=== PATIENT | female | born 1955 | race Caucasian/White ===

== ENCOUNTER 2018-05-11 21:59 | Emergency (ER) | payer OTHER ==
[~2018-05-11] VITALS: Ht 165.1 cm; Wt 100.0 kg
[~2018-05-11 21:59] MED LIST: ASPI-1159 PO; ATOR40TA70 PO; COR3 PO; FURO10VI3 PO; FURO20TA4 PO; LOSA25TA3 PO; METO25TA6 PO; OMEP20CA10 PO
[2018-05-11 23:41] LABS: BASOPHILS % 1.4 % (0.0-2.0); EOSINOPHILS % 14.6 % (0.0-5.0); HEMATOCRIT. 38.3 % (36.0-48.0); HEMOGLOBIN. 12.4 g/dL (12.0-16.0); MEAN CORPUSCULAR HEMOGLOBIN 23.9 pg (28.0-32.0); MEAN CORPUSCULAR VOLUME 73.8 fL (81.0-99.0); MEAN PLATELET VOLUME 9.9 fl (7.4-10.4); MONOCYTES % 9.1 % (2.0-8.0); NEUTROPHILS % 49.9 % (40.0-76.0); PLATELET 180 x1000/uL (130-400); RED BLOOD CELL COUNT 5.18 mill/uL (4.2-5.4); RED CELL DISTRIBUTION WIDTH 16.5 % (11.6-14.6)
[2018-05-11 23:47] LABS: CHLORIDE 105 mEq/L (98-107)
[2018-05-11 23:48] LABS: INR 1.1; PROTHROMBIN TIME 10.9 sec (9.4-11.6)
[2018-05-12] LABS: CLARITY URINE CLEAR (CLEAR); COLOR URINE YELLOW (YELLOW); KETONES URINE NEGATIVE (NEGATIVE); LEUKOCYTE ESTERASE URINE 2+ (NEGATIVE); NITRITE URINE NEGATIVE (NEGATIVE); OCCULT BLOOD URINE NEGATIVE (NEGATIVE); PROTEIN URINE NEGATIVE (NEGATIVE); SPECIFIC GRAVITY URINE 1.008 (1.005-1.030); UROBILINOGEN URINE 0.2 E.U./dL (0.2-1.0)
[2018-05-12] MEDS ORDERED: KETOROLAC 30MG/ML VIAL IV NR (01:38)
[2018-05-12 02:19] VITALS: BP 127/76
[2018-05-12] MEDS ORDERED: IOHEXOL-300 100 ML BOTTLE ONE (02:26)
== END 2018-05-12 02:22 | disposition home or self-care (01) ==
LOC: ER 23:36
DX: N39.0 Urinary tract infection, site not specified (principal); I10 Essential (primary) hypertension; E78.00 Pure hypercholesterolemia, unspecified; E03.9 Hypothyroidism, unspecified
CPT/HCPCS: 36415; 74177; 80053; 81003; 83690; 85025; 85610; 96374; 99285; J1885; Q9967; Z7610

== ENCOUNTER 2022-10-30 03:45 | Inpatient (IN) | payer MEDICARE ==
[~2022-10-30] VITALS: Ht 152.4 cm; Wt 56.8 kg
[~2022-10-30 03:45] MED LIST changes: -ASPI-1159 PO; +ASPI-1497 PO; +ESCI-7 PO; +ESCI5TAB PO; -FURO10VI3 PO; -FURO20TA4 PO; +FURO40TA5 MT; +LORA10TA7 PO; +METF-414 PO; -METO25TA6 PO; -OMEP20CA10 PO; +OMEP20CA14 PO
[2022-10-30 05:02] LABS: BASOPHILS % 1.2 % (0.0-2.0); EOSINOPHILS % 12.8 % (0.0-5.0); HEMATOCRIT. 35.1 % (36.0-48.0); HEMOGLOBIN. 11.2 g/dL (12.0-16.0); LYMPHOCYTES % 19.2 % (20.0-50.0); MEAN CORPUSCULAR HEMOGLOBIN 25.8 pg (28.0-32.0); MEAN CORPUSCULAR VOLUME 80.6 fL (81.0-99.0); MEAN PLATELET VOLUME 9.8 fl (7.4-10.4); MONOCYTES % 6.5 % (2.0-8.0); NEUTROPHILS % 60.3 % (40.0-76.0); PLATELET 158 x1000/uL (130-400); RED BLOOD CELL COUNT 4.35 mill/uL (4.2-5.4); RED CELL DISTRIBUTION WIDTH 15.8 % (11.6-14.6)
[2022-10-30 05:23] LABS: INR 1.1; PROTHROMBIN TIME 11.9 sec (9.6-11.0)
[2022-10-30 05:31] LABS: CHLORIDE 109 mEq/L (98-107)
[2022-10-30] MEDS ORDERED: ASPIRIN 81MG TABLET PO NR (06:30)
[2022-10-30] MEDS ORDERED: MORPHINE SULFATE 2 MG/ML CPJ (NOT FOR IM USE) IV ONE (07:15)
[2022-10-30] MEDS ORDERED: METHYLPREDNISOLONE SOD SUCC 125 MG/2 ML VIAL IV ONE (07:15)
[2022-10-30] MEDS ORDERED: IPRATROPIUM/ALBUTEROL 0.5-3(2.5)MG/3ML NEB HHN ONE (07:15)
[2022-10-30] MEDS ORDERED: MORPHINE SULFATE 2 MG/ML CPJ (NOT FOR IM USE) IV SCH (09:00)
[2022-10-30] MEDS ORDERED: METHYLPREDNISOLONE SOD SUCC 125 MG/2 ML VIAL IV SCH (09:00)
[2022-10-30] MEDS ORDERED: IOHEXOL-300 100 ML BOTTLE ONE (10:14)
[2022-10-30 13:00] VITALS: BP 101/56
[2022-10-30] MEDS: FUROSEMIDE 40MG/4ML VIAL IVP SCH (13:45)
[2022-10-30] MEDS ORDERED: IPRATROPIUM/ALBUTEROL 0.5-3(2.5)MG/3ML NEB HHN SCH (14:00)
[2022-10-30 15:52] VITALS: BP 101/56
[2022-10-30 16:00] VITALS: BP 110/60
[2022-10-30] MEDS ORDERED: INFLUENZA VACCINE 05/PF 0.5 ML SYRINGE IM ONE (16:45)
[2022-10-30] MEDS ORDERED: MORPHINE SULFATE 2 MG/ML CPJ (NOT FOR IM USE) IV PRN (18:30)
[2022-10-30] MEDS ORDERED: DEXTROSE 50% WATER 50ML SYRINGE IV PRN (18:30)
[2022-10-30 20:00] VITALS: BP 97/54
[2022-10-30] MEDS: BLOOD SUGAR DIAGNOSTIC STRIP TEST SCH (20:48)
[2022-10-30] MEDS: INSULIN LISPRO 100 UNITS/ML SUBCUT SCH (20:48)
[2022-10-30] MEDS: IPRATROPIUM/ALBUTEROL 0.5-3(2.5)MG/3ML NEB HHN SCH (21:24)
[2022-10-31] VITALS: BP 95/53
[2022-10-31] MEDS: IPRATROPIUM/ALBUTEROL 0.5-3(2.5)MG/3ML NEB HHN SCH ×4 (01:09→11:57)
[2022-10-31 03:43] VITALS: BP 90/55
[2022-10-31 06:30] LABS: HEMATOCRIT 30.6 % (36.0-48.0); MEAN CORPUSCULAR VOLUME 79.4 fL (81.0-99.0); PLATELET 158 x1000/uL (130-400); RED BLOOD CELL COUNT 3.85 mill/uL (4.2-5.4); RED CELL DISTRIBUTION WIDTH 15.7 % (11.6-14.6)
[2022-10-31 06:48] LABS: CHLORIDE 103 mEq/L (98-107)
[2022-10-31] MEDS: BLOOD SUGAR DIAGNOSTIC STRIP TEST SCH ×2 (07:29→12:34)
[2022-10-31] MEDS: INSULIN LISPRO 100 UNITS/ML SUBCUT SCH ×2 (07:29→13:15)
[2022-10-31 08:00] VITALS: BP 90/46
[2022-10-31] MEDS ORDERED: NALOXONE HCL 0.4MG/ML VIAL IV PRN (08:30)
[2022-10-31] MEDS ORDERED: CARVEDILOL 3.125 MG TABLET PO SCH (09:00)
[2022-10-31] MEDS ORDERED: LORATADINE 10MG TABLET PO SCH (09:00)
[2022-10-31] MEDS ORDERED: PREDNISONE 20MG TABLET PO SCH (09:00)
[2022-10-31] MEDS ORDERED: ENOXAPARIN 40MG/0.4ML SYR SUBCUT SCH (09:00)
[2022-10-31] MEDS ORDERED: ASPIRIN 81MG EC TABLET PO SCH (09:00)
[2022-10-31] MEDS: FUROSEMIDE 40MG/4ML VIAL IVP SCH (09:28)
[2022-10-31 12:00] VITALS: BP 93/50
[2022-10-31 12:59] LABS: HEMATOCRIT. 32.8 % (36.0-48.0); HEMOGLOBIN. 10.7 g/dL (12.0-16.0); MEAN CORPUSCULAR HEMOGLOBIN 26.1 pg (28.0-32.0); MEAN CORPUSCULAR VOLUME 79.7 fL (81.0-99.0); MEAN PLATELET VOLUME 10.1 fl (7.4-10.4); PLATELET 171 x1000/uL (130-400); RED BLOOD CELL COUNT 4.12 mill/uL (4.2-5.4); RED CELL DISTRIBUTION WIDTH 15.5 % (11.6-14.6)
[2022-10-31 13:08] LABS: CHLORIDE 102 mEq/L (98-107)
[2022-10-31 13:40] LABS: PLATELET ESTIMATE NORMAL
[2022-10-31 15:21] VITALS: BP 93/50
[2022-10-31 16:00] VITALS: BP 91/47
[2022-10-31] MEDS ORDERED: ATORVASTATIN CALCIUM 40MG TABLET PO SCH (17:00)
[2022-11-01] MEDS ORDERED: FUROSEMIDE 20MG TABLET PO SCH (09:00)
== END 2022-10-31 18:43 | disposition home or self-care (01) | DRG 280 ==
LOC: ER 04:06 → 8WST 07:03 → EDBEDREQTM 07:07 → EDBEDREQ 07:07 → ENRESERV 14:13
PROVIDERS: ADMIT Internal Medicine; ATTEND Internal Medicine
DX: I11.0 Hypertensive heart disease with heart failure (principal); I50.23 Acute on chronic systolic (congestive) heart failure; I21.A1 Myocardial infarction type 2; J96.91 Respiratory failure, unspecified with hypoxia; J44.1 Chronic obstructive pulmonary disease with (acute) exacerbation; E11.9 Type 2 diabetes mellitus without complications; D72.10 Eosinophilia, unspecified; Z20.822 Contact with and (suspected) exposure to COVID-19; E78.00 Pure hypercholesterolemia, unspecified; R74.01 Elevation of levels of liver transaminase levels; K76.0 Fatty (change of) liver, not elsewhere classified; I25.10 Atherosclerotic heart disease of native coronary artery without angina pectoris; I44.7 Left bundle-branch block, unspecified; Z95.810 Presence of automatic (implantable) cardiac defibrillator; R10.9 Unspecified abdominal pain
CPT/HCPCS: 36415; 71045; 74177; 80048; 80053; 82962; 83036; 83880; 84484; 85025; 85027; 86850; 86900; 87426; 87804; 90686; 93005; 93306; 94640; 99285; C9803; J1650; J1815; J1940; J2270; J2930; J7512; Q9967

== ENCOUNTER 2023-01-30 15:59 | Inpatient (IN) | payer MEDICARE ==
[~2023-01-30] VITALS: Ht 134.6 cm; Wt 62.8 kg
[2023-01-30 19:15] LABS: BASOPHILS % 2.3 % (0.0-2.0); EOSINOPHILS % 7.2 % (0.0-5.0); HEMATOCRIT. 31.4 % (36.0-48.0); HEMOGLOBIN. 9.6 g/dL (12.0-16.0); LYMPHOCYTES % 20.2 % (20.0-50.0); MEAN CORPUSCULAR HEMOGLOBIN 21.9 pg (28.0-32.0); MEAN CORPUSCULAR VOLUME 71.2 fL (81.0-99.0); MONOCYTES % 8.4 % (2.0-8.0); NEUTROPHILS % 61.9 % (40.0-76.0); PLATELET 216 x1000/uL (130-400); RED BLOOD CELL COUNT 4.41 mill/uL (4.2-5.4); RED CELL DISTRIBUTION WIDTH 17.8 % (11.6-14.6)
[2023-01-30 19:23] LABS: CHLORIDE 109 mEq/L (98-107)
[2023-01-30 19:26] LABS: INR 1.3; PROTHROMBIN TIME 13.3 sec (9.6-11.0)
[2023-01-30] MEDS ORDERED: TRAMADOL 50MG TABLET PO ONE (22:15)
[2023-01-30] MEDS ORDERED: ONDANSETRON 4MG ODT PO ONE (22:15)
[2023-01-30 22:43] LABS: CLARITY URINE CLOUDY (CLEAR); COLOR URINE DARK YELLOW (YELLOW); KETONES URINE TRACE (NEGATIVE); LEUKOCYTE ESTERASE URINE 2+ (NEGATIVE); NITRITE URINE NEGATIVE (NEGATIVE); OCCULT BLOOD URINE NEGATIVE (NEGATIVE); PROTEIN URINE 1+ (NEGATIVE); SPECIFIC GRAVITY URINE 1.028 (1.005-1.030)
[2023-01-31] MEDS ORDERED: AMOXICILLIN/POTASSIUM CLAVULANATE 875/125MG TAB PO ONE (02:00)
[2023-01-31 04:30] VITALS: BP 119/79
[2023-01-31] MEDS ORDERED: TRAM50TA3 MT (05:06)
[2023-01-31] MEDS ORDERED: FURO20TA4 MT (05:06)
[2023-01-31] MEDS ORDERED: LEVO100T PO (05:06)
[2023-01-31] MEDS ORDERED: CARV6.2548 PO (05:06)
[2023-01-31 05:10] VITALS: BP 119/79
[2023-01-31] MEDS ORDERED: ONDANSETRON HCL 4MG/2ML INJ IV PRN (06:15)
[2023-01-31] MEDS ORDERED: TRAMADOL 50MG TABLET PO PRN (06:15)
[2023-01-31 08:00] VITALS: BP 120/67
[2023-01-31] MEDS: ASPIRIN 81MG TABLET PO SCH (08:14)
[2023-01-31] MEDS: LEVOTHYROXINE SODIUM 50MCG TABLET PO SCH (08:14)
[2023-01-31] MEDS: CARVEDILOL 6.25 MG TABLET PO SCH ×2 (08:14→17:00)
[2023-01-31] MEDS: PANTOPRAZOLE 40MG DR TABLET PO SCH (08:14)
[2023-01-31] MEDS: HEPARIN 5000 UNITS/ML VIAL SUBCUT SCH ×2 (08:15→17:14)
[2023-01-31 08:55] LABS: BASOPHILS % 1.8 % (0.0-2.0); EOSINOPHILS % 8.4 % (0.0-5.0); HEMATOCRIT. 30.7 % (36.0-48.0); HEMOGLOBIN. 9.4 g/dL (12.0-16.0); LYMPHOCYTES % 24.3 % (20.0-50.0); MEAN CORPUSCULAR HEMOGLOBIN 21.7 pg (28.0-32.0); MEAN CORPUSCULAR VOLUME 71.1 fL (81.0-99.0); MEAN PLATELET VOLUME 9.5 fl (7.4-10.4); MONOCYTES % 8.8 % (2.0-8.0); NEUTROPHILS % 56.7 % (40.0-76.0); PLATELET 200 x1000/uL (130-400); RED BLOOD CELL COUNT 4.32 mill/uL (4.2-5.4); RED CELL DISTRIBUTION WIDTH 18.5 % (11.6-14.6)
[2023-01-31] MEDS ORDERED: *PATIENT'S OWN MEDICATION STORAGE XX SCH (09:30)
[2023-01-31 12:00] VITALS: BP 108/67
[2023-01-31] MEDS ORDERED: NALOXONE HCL 0.4MG/ML VIAL IV PRN (12:30)
[2023-01-31] MEDS ORDERED: CEFTRIAXONE 1GM PREMIX 50 ML IV SCH (14:00)
[2023-01-31 16:00] VITALS: BP 95/68
[2023-01-31] MEDS ORDERED: HYDROCODONE/ACETAMINOPHEN 5/325MG TABLET PO PRN (17:30)
[2023-01-31 19:44] VITALS: BP 101/68
[2023-02-01] VITALS: BP 106/72
[2023-02-01 04:00] VITALS: BP 107/70
[2023-02-01 08:00] VITALS: BP 109/70
[2023-02-01] MEDS: HEPARIN 5000 UNITS/ML VIAL SUBCUT SCH (08:56)
[2023-02-01] MEDS: PANTOPRAZOLE 40MG DR TABLET PO SCH (08:56)
[2023-02-01] MEDS: ASPIRIN 81MG TABLET PO SCH (08:56)
[2023-02-01] MEDS: CARVEDILOL 6.25 MG TABLET PO SCH (08:57)
[2023-02-01] MEDS: LEVOTHYROXINE SODIUM 50MCG TABLET PO SCH (08:57)
[2023-02-01] MEDS ORDERED: LEVOFLOXACIN 250MG TABLET PO SCH ×2 (11:00)
[2023-02-01 12:00] VITALS: BP 107/69
[2023-02-01 14:01] VITALS: BP 109/70
[2023-02-02] MEDS ORDERED: LEVOFLOXACIN 250MG TABLET PO SCH (11:00)
== END 2023-02-01 15:50 | disposition home or self-care (01) | DRG 689 ==
LOC: ER 15:59 → MICUSO 01-31 02:50 → EDBEDREQ 01-31 02:53 → 7WST 01-31 04:15
PROVIDERS: ADMIT Internal Medicine; ATTEND Internal Medicine
DX: N30.90 Cystitis, unspecified without hematuria (principal); I50.23 Acute on chronic systolic (congestive) heart failure; K85.90 Acute pancreatitis without necrosis or infection, unspecified; N17.9 Acute kidney failure, unspecified; I42.9 Cardiomyopathy, unspecified; E03.9 Hypothyroidism, unspecified; E11.9 Type 2 diabetes mellitus without complications; E66.9 Obesity, unspecified; I11.0 Hypertensive heart disease with heart failure; Z68.34 Body mass index [BMI] 34.0-34.9, adult; K21.9 Gastro-esophageal reflux disease without esophagitis; E78.00 Pure hypercholesterolemia, unspecified; I25.2 Old myocardial infarction; Z90.49 Acquired absence of other specified parts of digestive tract; Z95.810 Presence of automatic (implantable) cardiac defibrillator
CPT/HCPCS: 36415; 71045; 74176; 80048; 80053; 80076; 81003; 83880; 84484; 85025; 93005; 99285; J0696; J1644; J2405; Q0162

== ENCOUNTER 2023-03-09 07:47 | Emergency (ER) | payer MEDICARE ==
[~2023-03-09] VITALS: Ht 160 cm; Wt 62.0 kg
[~2023-03-09 07:47] MED LIST changes: +CARV6.2548 PO; +FURO20TA4 MT; +LEVO100T PO; +TRAM50TA3 MT
[2023-03-09 08:54] LABS: HEMATOCRIT. 33.7 % (36.0-48.0); MEAN CORPUSCULAR HEMOGLOBIN 19.7 pg (28.0-32.0); MEAN PLATELET VOLUME 8.8 fl (7.4-10.4); PLATELET 228 x1000/uL (130-400); RED BLOOD CELL COUNT 5.11 mill/uL (4.2-5.4); RED CELL DISTRIBUTION WIDTH 20.7 % (11.6-14.6)
[2023-03-09 09:04] LABS: CHLORIDE 107 mEq/L (98-107)
[2023-03-09 10:24] VITALS: BP 100/64
[2023-03-09 10:43] LABS: PLATELET ESTIMATE NORMAL
== END 2023-03-09 10:26 | disposition home or self-care (01) ==
LOC: ER 07:47
DX: D64.9 Anemia, unspecified (principal); I11.0 Hypertensive heart disease with heart failure; I50.9 Heart failure, unspecified; E78.00 Pure hypercholesterolemia, unspecified; Z86.39 Personal history of other endocrine, nutritional and metabolic disease; Z90.49 Acquired absence of other specified parts of digestive tract
CPT/HCPCS: 36415; 80053; 85025; 86850; 86900; 99283

== ENCOUNTER 2023-08-18 07:54 | Emergency (ER) | payer MEDICARE ==
[~2023-08-18] VITALS: Ht 152.4 cm; Wt 54.0 kg
[~2023-08-18 07:54] MED LIST changes: +LOSA-412 PO; -LOSA25TA3 PO
[2023-08-18 08:13] VITALS: BP 96/61; PULSE 89; RESP 20; TEMP 98.1; O2SAT 99
[2023-08-18 09:20] LABS: BASOPHILS % 2.2 % (0.0-2.0); EOSINOPHILS % 8.6 % (0.0-5.0); HEMATOCRIT. 31.1 % (36.0-48.0); HEMOGLOBIN. 8.8 g/dL (12.0-16.0); LYMPHOCYTES % 17.3 % (20.0-50.0); MEAN CORPUSCULAR HEMOGLOBIN 17.6 pg (28.0-32.0); MEAN CORPUSCULAR HGB CONC 28.4 g/dL (31.0-37.0); MEAN CORPUSCULAR VOLUME 61.8 fL (81.0-99.0); MONOCYTES % 7.7 % (2.0-8.0); NEUTROPHILS % 64.2 % (40.0-76.0); PLATELET 258 x1000/uL (130-400); RED BLOOD CELL COUNT 5.04 mill/uL (4.2-5.4); RED CELL DISTRIBUTION WIDTH 23.3 % (11.6-14.6); WHITE BLOOD COUNT 4.7 x1000/uL (4.5-11.0)
[2023-08-18 09:23] LABS: ADD RBC MORPHOLOGY YES; DIFFERENTIAL COMMENT 1
[2023-08-18 09:30] LABS: CHLORIDE 109 mEq/L (98-107); INDEX HEMOLYSI 1 (1-3); INDEX ICTERIC 1 (1-4); INDEX LIPEMIC 1 (1-3); POTASSIUM 4.1 mEq/L (3.5-5.1); SODIUM 143 mEq/L (136-145)
[2023-08-18 09:38] LABS: ALANINE AMINOTRANSFERASE 55 IU/L (13-61); ALBUMIN 3.6 g/dL (3.4-5.0); ASPARTATE AMINOTRANSFERASE 27 IU/L (15-37); BILIRUBIN TOTAL 1.3 mg/dL (0.1-1.0); CALCIUM 8.6 mg/dL (8.5-10.1); CARBON DIOXIDE 32 mEq/L (21-32); CREATININE 1.1 mg/dL (0.6-1.3); GLUCOSE 126 mg/dL (70-105); PROTEIN TOTAL 7.3 g/dL (6.0-8.3); UREA NITROGEN BLOOD 24 mg/dL (7-21)
[2023-08-18 10:41] LABS: ANISOCYTOSIS 3+; MICROCYTOSIS 4+; PLATELET ESTIMATE NORMAL
[2023-08-18 10:42] LABS: HYPOCHROMASIA 2+
== END 2023-08-18 11:19 | disposition home or self-care (01) ==
LOC: ER 07:54
DX: D64.9 Anemia, unspecified (principal); I49.9 Cardiac arrhythmia, unspecified
CPT/HCPCS: 36415; 80053; 85025; 86850; 86900; 93005; 99284

== ENCOUNTER 2024-01-02 11:14 | Inpatient (IN) | payer MEDICARE ==
[~2024-01-02] VITALS: Ht 144.8 cm; Wt 61.2 kg
[~2024-01-02 11:14] MED LIST changes: -CARV6.2548 PO; -FURO40TA5 MT
[2024-01-02 12:41] LABS: BASOPHILS % 1.8 % (0.0-2.0); EOSINOPHILS % 11.8 % (0.0-5.0); HEMATOCRIT. 32.8 % (36.0-48.0); HEMOGLOBIN. 9.7 g/dL (12.0-16.0); LYMPHOCYTES % 20.6 % (20.0-50.0); MEAN CORPUSCULAR HEMOGLOBIN 19.8 pg (28.0-32.0); MEAN CORPUSCULAR HGB CONC 29.5 g/dL (31.0-37.0); MEAN PLATELET VOLUME 9.3 fl (7.4-10.4); MONOCYTES % 8.6 % (2.0-8.0); NEUTROPHILS % 57.2 % (40.0-76.0); PLATELET 221 x1000/uL (130-400); RED BLOOD CELL COUNT 4.89 mill/uL (4.2-5.4); RED CELL DISTRIBUTION WIDTH 27.2 % (11.6-14.6); WHITE BLOOD COUNT 6.3 x1000/uL (4.5-11.0)
[2024-01-02 12:54] LABS: DIFFERENTIAL COMMENT 1
[2024-01-02 12:55] LABS: ADD RBC MORPHOLOGY YES
[2024-01-02 12:59] LABS: ALANINE AMINOTRANSFERASE 39 IU/L (10-49); ALBUMIN 4.1 g/dL (3.2-4.8); ASPARTATE AMINOTRANSFERASE 45 IU/L (<34); BILIRUBIN TOTAL 1.9 mg/dL (0.1-1.0); CALCIUM 8.5 mg/dL (8.7-10.4); CARBON DIOXIDE 25 mEq/L (21-32); CHLORIDE 107 mEq/L (98-107); CREATININE 1.3 mg/dL (0.6-1.0); GLUCOSE 97 mg/dL (70-105); POTASSIUM 5.2 mEq/L (3.5-5.1); PROTEIN TOTAL 6.5 g/dL (6.0-8.3); SODIUM 137 mEq/L (136-145); UREA NITROGEN BLOOD 30 mg/dL (9-23)
[2024-01-02 13:10] LABS: HYPOCHROMASIA 1+
[2024-01-02 13:11] LABS: ANISOCYTOSIS 3+; MICROCYTOSIS 2+
[2024-01-02 13:12] LABS: PLATELET ESTIMATE NORMAL
[2024-01-02 13:17] LABS: TROPONIN I HIGH SENSITIVITY 86 ng/L (3.0-34)
[2024-01-02] MEDS ORDERED: REGADENOSON 0.4 MG/5 ML IV NR (15:00)
[2024-01-02] MEDS: ASPIRIN 81MG TABLET PO NR (16:08)
[2024-01-02] MEDS ORDERED: CARVEDILOL 3.125 MG TABLET PO SCH (17:00)
[2024-01-02 17:30] VITALS: BP 116/83; PULSE 110; RESP 20; TEMP 97.1
[2024-01-02] MEDS ORDERED: ATORVASTATIN CALCIUM 40MG TABLET PO SCH (17:30)
[2024-01-02] MEDS: OMEPRAZOLE 20MG CAPSULE EXTENDED RELEASE PO SCH (17:30)
[2024-01-02] MEDS ORDERED: ONDANSETRON HCL 4MG/2ML INJ IV PRN (17:30)
[2024-01-02] MEDS: ASPIRIN 81MG EC TABLET PO SCH (17:30)
[2024-01-02] MEDS ORDERED: DEXTROSE 50% WATER 50ML SYRINGE IV PRN (17:30)
[2024-01-02] MEDS: INSULIN LISPRO 100 UNITS/ML SUBCUT SCH (17:40)
[2024-01-02 18:23] VITALS: BP 116/83; PULSE 110; RESP 22; TEMP 97.1
[2024-01-02] MEDS: LOSARTAN 25 MG TABLET PO SCH (18:57)
[2024-01-02] MEDS: ENOXAPARIN 40MG/0.4ML SYR SUBCUT SCH (18:58)
[2024-01-02] MEDS: LEVOTHYROXINE SODIUM 50MCG TABLET PO SCH (18:58)
[2024-01-02] MEDS: LORATADINE 10MG TABLET PO SCH (18:58)
[2024-01-02 20:00] VITALS: BP 107/74; PULSE 103; RESP 17; TEMP 97.8
[2024-01-02] MEDS: BLOOD SUGAR DIAGNOSTIC STRIP TEST SCH (20:06)
[2024-01-02 20:24] LABS: POTASSIUM 4.9 mEq/L (3.5-5.1)
[2024-01-02] MEDS: ATORVASTATIN CALCIUM 40MG TABLET PO SCH (20:29)
[2024-01-02] MEDS: CARVEDILOL 3.125 MG TABLET PO SCH (20:30)
[2024-01-02 20:36] LABS: TROPONIN I HIGH SENSITIVITY 83 ng/L (3.0-34)
[2024-01-02] MEDS: ACETAMINOPHEN 325MG TABLET PO PRN (20:36)
[2024-01-03] VITALS (7 sets, daily range): BP systolic 91–109; BP diastolic 53–70; PULSE 86–108; RESP 17–20; TEMP 97–97.7
[2024-01-03 01:11] LABS: CREATINE KINASE MB FRACTION 1.9 ng/mL (0.5-3.6)
[2024-01-03] MEDS ORDERED: NON FORMULARY PATIENT HOME MED XX SCH (03:45)
[2024-01-03] MEDS: MELATONIN 3MG TABLET PO PRN (04:02)
[2024-01-03] MEDS: GUAIFENESIN/DM 600MG/30MG ER TAB 12HR PO PRN (04:02)
[2024-01-03 08:38] LABS: CREATINE KINASE MB FRACTION 1.7 ng/mL (0.5-3.6)
[2024-01-03] MEDS: FUROSEMIDE 20MG TABLET PO SCH (08:41)
[2024-01-03 12:16] LABS: BASOPHILS % 1.8 % (0.0-2.0); EOSINOPHILS % 12.5 % (0.0-5.0); HEMATOCRIT. 32.5 % (36.0-48.0); HEMOGLOBIN. 9.5 g/dL (12.0-16.0); LYMPHOCYTES % 15.8 % (20.0-50.0); MEAN CORPUSCULAR HEMOGLOBIN 19.3 pg (28.0-32.0); MEAN CORPUSCULAR HGB CONC 29.2 g/dL (31.0-37.0); MEAN CORPUSCULAR VOLUME 66.2 fL (81.0-99.0); MEAN PLATELET VOLUME 9.1 fl (7.4-10.4); NEUTROPHILS % 60.9 % (40.0-76.0); PLATELET 203 x1000/uL (130-400); RED BLOOD CELL COUNT 4.91 mill/uL (4.2-5.4); RED CELL DISTRIBUTION WIDTH 26.7 % (11.6-14.6); WHITE BLOOD COUNT 6.5 x1000/uL (4.5-11.0)
[2024-01-03 12:17] LABS: DIFFERENTIAL COMMENT 1
[2024-01-03 12:18] LABS: ADD RBC MORPHOLOGY NO
[2024-01-03 12:31] LABS: ALANINE AMINOTRANSFERASE 52 IU/L (10-49); ALBUMIN 3.8 g/dL (3.2-4.8); ASPARTATE AMINOTRANSFERASE 61 IU/L (<34); BILIRUBIN TOTAL 1.8 mg/dL (0.1-1.0); CALCIUM 8.5 mg/dL (8.7-10.4); CARBON DIOXIDE 25 mEq/L (21-32); CHLORIDE 105 mEq/L (98-107); CREATININE 1.2 mg/dL (0.6-1.0); GLUCOSE 131 mg/dL (70-105); POTASSIUM 4.7 mEq/L (3.5-5.1); PROTEIN TOTAL 6.3 g/dL (6.0-8.3); SODIUM 138 mEq/L (136-145); T4 FREE 1.32 ng/dL (0.89-1.76); UREA NITROGEN BLOOD 33 mg/dL (9-23)
[2024-01-03 12:54] LABS: TROPONIN I HIGH SENSITIVITY 86 ng/L (3.0-34)
[2024-01-03] MEDS: IPRATROPIUM/ALBUTEROL 0.5-3(2.5)MG/3ML NEB HHN PRN (21:55)
[2024-01-04] VITALS: BP 108/71; PULSE 104; RESP 18; TEMP 97.9
[2024-01-04 04:00] VITALS: BP 114/70; PULSE 91; RESP 18; TEMP 97.5
[2024-01-04 08:00] VITALS: BP 110/67; PULSE 89; RESP 22; TEMP 97.6
[2024-01-04] MEDS ORDERED: REGADENOSON 0.4 MG/5 ML IV ONE (10:57)
[2024-01-04 12:50] VITALS: BP 117/69; PULSE 90; RESP 20; TEMP 97.6
[2024-01-04 16:00] VITALS: BP 111/74; PULSE 91; RESP 18; TEMP 98.1
[2024-01-04] MEDS: LOPERAMIDE HCL 2MG CAPSULE PO NR (18:33)
[2024-01-04 18:37] VITALS: BP 111/74; PULSE 91; TEMP 98.6; O2SAT 98
== END 2024-01-04 19:47 | disposition home or self-care (01) | DRG 280 ==
LOC: ER 11:14 → 8WST 13:55 → EDBEDREQTM 13:56 → EDBEDREQ 13:56
PROVIDERS: ADMIT Internal Medicine; ATTEND Internal Medicine
DX: I21.4 Non-ST elevation (NSTEMI) myocardial infarction (principal); I50.23 Acute on chronic systolic (congestive) heart failure; I13.0 Hypertensive heart and chronic kidney disease with heart failure and stage 1 through stage 4 chronic kidney disease, or unspecified chronic kidney disease; N17.9 Acute kidney failure, unspecified; I42.0 Dilated cardiomyopathy; N18.30 Chronic kidney disease, stage 3 unspecified; E03.9 Hypothyroidism, unspecified; E11.22 Type 2 diabetes mellitus with diabetic chronic kidney disease; D50.9 Iron deficiency anemia, unspecified; E78.00 Pure hypercholesterolemia, unspecified; E87.5 Hyperkalemia; I27.20 Pulmonary hypertension, unspecified; F41.9 Anxiety disorder, unspecified; Z95.810 Presence of automatic (implantable) cardiac defibrillator; Z79.899 Other long term (current) drug therapy
CPT/HCPCS: 36415; 71045; 78452; 80053; 80061; 82550; 82553; 82962; 83036; 83880; 84132; 84439; 84443; 84484; 85025; 93005; 93017; 99285; A9500; J1650; J1815; J2785

== ENCOUNTER 2024-02-06 14:07 | Inpatient (IN) | payer MEDICARE ==
[~2024-02-06] VITALS: Ht 149.9 cm; Wt 50.1 kg
[2024-02-06] MEDS: ONDANSETRON HCL 4MG/2ML INJ IV STA (15:30)
[2024-02-06] MEDS: KETOROLAC 30MG/ML VIAL IV STA (15:35)
[2024-02-06] MEDS: SODIUM CHLORIDE 0.9% 1,000 ML IV ONE (15:36)
[2024-02-06 16:01] LABS: CLARITY URINE CLOUDY (CLEAR); COLOR URINE DARK YELLOW (YELLOW); GLUCOSE URINE TRACE (NEGATIVE); KETONES URINE NEGATIVE (NEGATIVE); LEUKOCYTE ESTERASE URINE 2+ (NEGATIVE); NITRITE URINE NEGATIVE (NEGATIVE); OCCULT BLOOD URINE TRACE (NEGATIVE); PROTEIN URINE 2+ (NEGATIVE); SPECIFIC GRAVITY URINE 1.024 (1.005-1.030)
[2024-02-06 16:08] LABS: BASOPHILS % 1.4 % (0.0-2.0); DIFFERENTIAL COMMENT 1; EOSINOPHILS % 5.8 % (0.0-5.0); HEMATOCRIT. 34.4 % (36.0-48.0); HEMOGLOBIN. 10.2 g/dL (12.0-16.0); LYMPHOCYTES % 17.3 % (20.0-50.0); MEAN CORPUSCULAR HEMOGLOBIN 20.7 pg (28.0-32.0); MEAN CORPUSCULAR HGB CONC 29.7 g/dL (31.0-37.0); MEAN CORPUSCULAR VOLUME 69.7 fL (81.0-99.0); MEAN PLATELET VOLUME 9.1 fl (7.4-10.4); MONOCYTES % 8.2 % (2.0-8.0); NEUTROPHILS % 67.3 % (40.0-76.0); PLATELET 173 x1000/uL (130-400); RED BLOOD CELL COUNT 4.94 mill/uL (4.2-5.4); RED CELL DISTRIBUTION WIDTH 27.9 % (11.6-14.6); WHITE BLOOD COUNT 6.1 x1000/uL (4.5-11.0)
[2024-02-06] MEDS: FUROSEMIDE 40MG/4ML VIAL IVP ONE (16:23)
[2024-02-06 16:24] LABS: LACTIC ACID 2.2 mmol/L (0.4-2.0)
[2024-02-06 16:25] LABS: BACTERIA URINE 2+; SQUAMOUS EPITHELIAL CELL URINE 1+ /lpf (RARE/1+)
[2024-02-06 16:25] LABS: INR 1.3; PROTHROMBIN TIME 14.4 sec (9.6-11.0)
[2024-02-06 16:26] LABS: WBC URINE 25-50 /hpf (0-2)
[2024-02-06 16:27] LABS: ALANINE AMINOTRANSFERASE 15 IU/L (10-49); ASPARTATE AMINOTRANSFERASE 27 IU/L (<34); BILIRUBIN TOTAL 2.3 mg/dL (0.1-1.0); CALCIUM 8.3 mg/dL (8.7-10.4); CARBON DIOXIDE 25 mEq/L (21-32); CHLORIDE 103 mEq/L (98-107); CREATININE 1.4 mg/dL (0.6-1.0); GLUCOSE 103 mg/dL (70-105); POTASSIUM 4.2 mEq/L (3.5-5.1); PROTEIN TOTAL 6.2 g/dL (6.0-8.3); SODIUM 138 mEq/L (136-145); UREA NITROGEN BLOOD 29 mg/dL (9-23)
[2024-02-06 16:36] LABS: TROPONIN I HIGH SENSITIVITY 119 ng/L (3.0-34)
[2024-02-06 19:30] VITALS: BP 94/65; PULSE 91; RESP 19; TEMP 97.7
[2024-02-06 20:00] VITALS: BP 94/65; PULSE 91; RESP 19; TEMP 97.7
[2024-02-06] MEDS ORDERED: DEXTROSE 50% WATER 50ML SYRINGE IV PRN (20:15)
[2024-02-06] MEDS ORDERED: ACETAMINOPHEN 325MG TABLET PO PRN (20:15)
[2024-02-06] MEDS: INSULIN LISPRO 100 UNITS/ML SUBCUT SCH (21:00)
[2024-02-06] MEDS: CARVEDILOL 6.25 MG TABLET PO SCH (21:00)
[2024-02-06] MEDS: BLOOD SUGAR DIAGNOSTIC STRIP TEST SCH (21:48)
[2024-02-06] MEDS: LORAZEPAM 1MG TABLET PO PRN (21:51)
[2024-02-06] MEDS: ATORVASTATIN CALCIUM 40MG TABLET PO SCH (21:52)
[2024-02-06] MEDS: FAMOTIDINE 20MG TABLET PO SCH (21:52)
[2024-02-06] MEDS ORDERED: PIPERACILLIN/TAZO 3.375G/50ML 50 ML IV SCH (22:00)
[2024-02-07] VITALS (7 sets, daily range): BP systolic 83–104; BP diastolic 52–73; PULSE 78–97; RESP 18–20; TEMP 97.5–98.6; O2SAT 99
[2024-02-07 07:37] LABS: BASOPHILS % 1.5 % (0.0-2.0); EOSINOPHILS % 12.8 % (0.0-5.0); HEMATOCRIT. 31.9 % (36.0-48.0); HEMOGLOBIN. 9.6 g/dL (12.0-16.0); LYMPHOCYTES % 27.7 % (20.0-50.0); MEAN CORPUSCULAR HEMOGLOBIN 21.2 pg (28.0-32.0); MEAN CORPUSCULAR HGB CONC 30.2 g/dL (31.0-37.0); MEAN CORPUSCULAR VOLUME 70.2 fL (81.0-99.0); MEAN PLATELET VOLUME 9.1 fl (7.4-10.4); MONOCYTES % 8.5 % (2.0-8.0); NEUTROPHILS % 49.5 % (40.0-76.0); PLATELET 147 x1000/uL (130-400); RED BLOOD CELL COUNT 4.54 mill/uL (4.2-5.4); RED CELL DISTRIBUTION WIDTH 27.4 % (11.6-14.6); WHITE BLOOD COUNT 4.7 x1000/uL (4.5-11.0)
[2024-02-07 07:49] LABS: CALCIUM 8.2 mg/dL (8.7-10.4); CARBON DIOXIDE 25 mEq/L (21-32); CHLORIDE 105 mEq/L (98-107); CHOLESTEROL 122 mg/dL (<200); CREATININE 1.4 mg/dL (0.6-1.0); GLUCOSE 66 mg/dL (70-105); HDL CHOLESTEROL < 20 mg/dL (>65); LDL CHOLESTEROL 98 mg/dL (5-100); POTASSIUM 3.9 mEq/L (3.5-5.1); SODIUM 140 mEq/L (136-145); THYROID STIMULATING HORMONE 6.07 uIU/mL (0.55-4.78); TRIGLYCERIDE 74 mg/dL (0-150); UREA NITROGEN BLOOD 30 mg/dL (9-23)
[2024-02-07 08:01] LABS: DIFFERENTIAL COMMENT 1
[2024-02-07 08:03] LABS: ADD RBC MORPHOLOGY YES
[2024-02-07] MEDS: LOSARTAN 50 MG TABLET PO SCH (09:00)
[2024-02-07] MEDS: FUROSEMIDE 40MG/4ML VIAL IVP SCH (09:00)
[2024-02-07] MEDS: ASPIRIN 81MG TABLET PO SCH (09:11)
[2024-02-07] MEDS: ENOXAPARIN 30MG/0.3ML SYR SUBCUT SCH (09:12)
[2024-02-07] MEDS: LEVOTHYROXINE SODIUM 50MCG TABLET PO SCH (09:13)
[2024-02-07] MEDS ORDERED: LEVO-65 MT (12:37)
[2024-02-07] MEDS ORDERED: METR-167 MT (12:37)
[2024-02-07] MEDS: CEFTRIAXONE 1GM/50ML 50 ML IV SCH (12:57)
[2024-02-07] MEDS: LACTULOSE 20G/30ML UDC PO NR (15:24)
[2024-02-07 18:09] LABS: ANISOCYTOSIS 3+; HYPOCHROMASIA 2+; MICROCYTOSIS 2+; PLATELET ESTIMATE NORMAL
== END 2024-02-07 16:15 | disposition home or self-care (01) | DRG 391 ==
LOC: ER 14:07 → 7WST 17:51 → EDBEDREQTM 17:52 → EDBEDREQ 17:52
PROVIDERS: ADMIT Internal Medicine; ATTEND Internal Medicine
DX: K29.70 Gastritis, unspecified, without bleeding (principal); I50.23 Acute on chronic systolic (congestive) heart failure; N17.0 Acute kidney failure with tubular necrosis; N39.0 Urinary tract infection, site not specified; K57.32 Diverticulitis of large intestine without perforation or abscess without bleeding; I11.0 Hypertensive heart disease with heart failure; D64.9 Anemia, unspecified; E03.9 Hypothyroidism, unspecified; E11.9 Type 2 diabetes mellitus without complications; E78.00 Pure hypercholesterolemia, unspecified; Z86.73 Personal history of transient ischemic attack (TIA), and cerebral infarction without residual deficits; Z95.810 Presence of automatic (implantable) cardiac defibrillator; Z90.49 Acquired absence of other specified parts of digestive tract
CPT/HCPCS: 36415; 71045; 74176; 76705; 80048; 80053; 80061; 81003; 82378; 82962; 83036; 83605; 83880; 84443; 84484; 85025; 86301; 93005; 93306; 99291; J0696; J1650; J1815; J1885; J1940; J2405; J7030

== ENCOUNTER 2024-03-23 02:49 | Emergency (ER) | payer MEDICARE ==
[~2024-03-23] VITALS: Ht 149.9 cm; Wt 58.0 kg
[~2024-03-23 02:49] MED LIST changes: +LEVO-65 MT; +METR-167 MT
[2024-03-23 02:58] VITALS: BP 96/63; PULSE 92; RESP 20; TEMP 97.1; O2SAT 100
[2024-03-23 03:17] LABS: BASOPHILS % 1.3 % (0.0-2.0); EOSINOPHILS % 4.3 % (0.0-5.0); HEMATOCRIT. 39.7 % (36.0-48.0); HEMOGLOBIN. 12.6 g/dL (12.0-16.0); LYMPHOCYTES % 13.1 % (20.0-50.0); MEAN CORPUSCULAR HEMOGLOBIN 23.8 pg (28.0-32.0); MEAN CORPUSCULAR HGB CONC 31.8 g/dL (31.0-37.0); MEAN CORPUSCULAR VOLUME 74.8 fL (81.0-99.0); MEAN PLATELET VOLUME 9.4 fl (7.4-10.4); MONOCYTES % 10.3 % (2.0-8.0); PLATELET 210 x1000/uL (130-400); RED BLOOD CELL COUNT 5.31 mill/uL (4.2-5.4); RED CELL DISTRIBUTION WIDTH 29.6 % (11.6-14.6); WHITE BLOOD COUNT 8.8 x1000/uL (4.5-11.0)
[2024-03-23 03:23] LABS: CHLORIDE 105 mEq/L (98-107); POTASSIUM 4.9 mEq/L (3.5-5.1); SODIUM 136 mEq/L (136-145)
[2024-03-23 03:24] LABS: CARBON DIOXIDE 22 mEq/L (21-32)
[2024-03-23 03:29] LABS: GLUCOSE 130 mg/dL (70-105); UREA NITROGEN BLOOD 31 mg/dL (9-23)
[2024-03-23 03:31] LABS: ALANINE AMINOTRANSFERASE 44 IU/L (10-49); ALBUMIN 3.9 g/dL (3.2-4.8); ASPARTATE AMINOTRANSFERASE 67 IU/L (<34); BILIRUBIN TOTAL 1.5 mg/dL (0.1-1.0); PROTEIN TOTAL 6.3 g/dL (6.0-8.3)
[2024-03-23 03:44] LABS: CREATININE 1.5 mg/dL (0.6-1.0)
[2024-03-23 03:50] LABS: DIFFERENTIAL COMMENT 1
[2024-03-23 03:51] LABS: ADD RBC MORPHOLOGY YES
[2024-03-23 04:14] LABS: PLATELET ESTIMATE NORMAL
[2024-03-23 04:15] LABS: GIANT PLATELETS FEW; OVALOCYTES 2+; TEAR DROP CELLS 3+
[2024-03-23] MEDS ORDERED: BENZ100C86 MT (10:07)
== END 2024-03-23 10:22 | disposition home or self-care (01) ==
LOC: ER 03:07
DX: B34.9 Viral infection, unspecified (principal); F41.9 Anxiety disorder, unspecified; I11.0 Hypertensive heart disease with heart failure; I50.9 Heart failure, unspecified; E11.9 Type 2 diabetes mellitus without complications; E78.00 Pure hypercholesterolemia, unspecified; Z86.73 Personal history of transient ischemic attack (TIA), and cerebral infarction without residual deficits; Z90.49 Acquired absence of other specified parts of digestive tract; Z95.0 Presence of cardiac pacemaker
CPT/HCPCS: 36415; 71046; 80053; 85025; 99284

== ENCOUNTER 2024-07-22 10:44 | Inpatient (IN) | payer MEDICARE ==
[~2024-07-22] VITALS: Ht 152.4 cm; Wt 61.4 kg
[~2024-07-22 10:44] MED LIST changes: +ALPR-339 PO; +CARV3.1242 PO; +CIPR-263 MT; -COR3 PO; -ESCI5TAB PO; -LEVO-65 MT; -METR-167 MT; +SACU1TAB PO; +SUCR1TAB30 PO; -TRAM50TA3 MT
[2024-07-22 11:20] LABS: BASOPHILS % 1.4 % (0.0-2.0); DIFFERENTIAL COMMENT 0; EOSINOPHILS % 12.6 % (0.0-5.0); HEMATOCRIT. 37.3 % (36.0-48.0); HEMOGLOBIN. 11.3 g/dL (12.0-16.0); LYMPHOCYTES % 20.8 % (20.0-50.0); MEAN CORPUSCULAR HEMOGLOBIN 22.7 pg (28.0-32.0); MEAN CORPUSCULAR HGB CONC 30.3 g/dL (31.0-37.0); MEAN CORPUSCULAR VOLUME 74.9 fL (81.0-99.0); MEAN PLATELET VOLUME 9.4 fl (7.4-10.4); MONOCYTES % 7.3 % (2.0-8.0); NEUTROPHILS % 57.9 % (40.0-76.0); PLATELET 166 x1000/uL (130-400); RED BLOOD CELL COUNT 4.98 mill/uL (4.2-5.4); RED CELL DISTRIBUTION WIDTH 21.8 % (11.6-14.6); WHITE BLOOD COUNT 6.2 x1000/uL (4.5-11.0)
[2024-07-22 11:27] LABS: CHLORIDE 105 mEq/L (98-107); POTASSIUM 4.6 mEq/L (3.5-5.1); SODIUM 141 mEq/L (136-145)
[2024-07-22 11:28] LABS: CALCIUM 9.3 mg/dL (8.7-10.4); CARBON DIOXIDE 25 mEq/L (21-32)
[2024-07-22 11:33] LABS: GLUCOSE 90 mg/dL (70-105); UREA NITROGEN BLOOD 41 mg/dL (9-23)
[2024-07-22 11:45] LABS: CREATININE 1.7 mg/dL (0.6-1.0)
[2024-07-22 11:46] LABS: TROPONIN I HIGH SENSITIVITY 128 ng/L (3.0-34)
[2024-07-22] MEDS ORDERED: ASPIRIN 81MG TABLET PO ONE (14:30)
[2024-07-22] MEDS ORDERED: ONDANSETRON HCL 4MG/2ML INJ IV PRN (15:15)
[2024-07-22] MEDS ORDERED: ACETAMINOPHEN 325MG TABLET PO PRN ×2 (15:15)
[2024-07-22] MEDS ORDERED: MAGNESIUM/ALUMINUM HYDROXIDE/SIMETHICONE 30ML UDC PO PRN (15:15)
[2024-07-22] MEDS ORDERED: CLONIDINE 0.1MG TABLET PO PRN (15:15)
[2024-07-22] MEDS ORDERED: IPRATROPIUM/ALBUTEROL 0.5-3(2.5)MG/3ML NEB HHN PRN (15:15)
[2024-07-22 16:07] LABS: TROPONIN I HIGH SENSITIVITY 137 ng/L (3.0-34)
[2024-07-22 18:09] LABS: IRON 59 ug/dL (50-170)
[2024-07-22 18:12] LABS: TOTAL IRON BINDING CAPACITY 420 ug/dl (250-425)
[2024-07-22] MEDS: FUROSEMIDE 40MG/4ML VIAL IVP NR (18:28)
[2024-07-22] MEDS: ASPIRIN 81MG TABLET PO NR (18:29)
[2024-07-22] MEDS: ENOXAPARIN 30MG/0.3ML SYR SUBCUT SCH (18:29)
[2024-07-22] MEDS: FUROSEMIDE 40MG TABLET PO ONE (18:29)
[2024-07-22 19:34] LABS: CLARITY URINE CLEAR (CLEAR); COLOR URINE YELLOW (YELLOW); GLUCOSE URINE NEGATIVE (NEGATIVE); KETONES URINE NEGATIVE (NEGATIVE); LEUKOCYTE ESTERASE URINE 1+ (NEGATIVE); NITRITE URINE NEGATIVE (NEGATIVE); OCCULT BLOOD URINE NEGATIVE (NEGATIVE); PH URINE 6.5 (4.5-8.0); PROTEIN URINE NEGATIVE (NEGATIVE); SPECIFIC GRAVITY URINE 1.009 (1.005-1.030); UROBILINOGEN URINE 0.2 E.U./dL (0.2-1.0)
[2024-07-22 19:45] LABS: *AMPHETAMINES SCREEN URINE NEGATIVE (NEGATIVE); *BARBITURATES SCREEN URINE NEGATIVE (NEGATIVE); *BENZODIAZEPINES SCREEN URINE NEGATIVE (NEGATIVE); *COCAINE SCREEN URINE NEGATIVE (NEGATIVE); CANNABINOID URINE SCREEN NEGATIVE (NEGATIVE); ECSTASY MDMA SCREEN URINE NEGATIVE (NEGATIVE); METHADONE URINE SCREEN NEGATIVE (NEGATIVE); OPIATES URINE SCREEN NEGATIVE (NEGATIVE); PHENCYCLIDINE URINE SCREEN NEGATIVE (NEGATIVE)
[2024-07-22 20:24] LABS: BACTERIA URINE TRACE; RBC URINE 0-2 /hpf (0-2); SQUAMOUS EPITHELIAL CELL URINE 1+ /lpf (RARE/1+)
[2024-07-22] MEDS: ATORVASTATIN CALCIUM 20MG TABLET PO SCH (21:15)
[2024-07-23 00:37] LABS: TROPONIN I HIGH SENSITIVITY 132 ng/L (3.0-34)
[2024-07-23 06:54] LABS: CHLORIDE 105 mEq/L (98-107); POTASSIUM 4.1 mEq/L (3.5-5.1); SODIUM 141 mEq/L (136-145)
[2024-07-23 06:55] LABS: CARBON DIOXIDE 26 mEq/L (21-32)
[2024-07-23 06:59] LABS: TROPONIN I HIGH SENSITIVITY 131 ng/L (3.0-34)
[2024-07-23 07:00] LABS: CREATININE 1.5 mg/dL (0.6-1.0); GLUCOSE 88 mg/dL (70-105); TRIGLYCERIDE 75 mg/dL (0-150); UREA NITROGEN BLOOD 39 mg/dL (9-23)
[2024-07-23 07:01] LABS: LDL CHOLESTEROL 90 mg/dL (5-100); T4 FREE 1.17 ng/dL (0.89-1.76); THYROID STIMULATING HORMONE 9.26 uIU/mL (0.55-4.78)
[2024-07-23 07:02] LABS: ALBUMIN 3.7 g/dL (3.2-4.8); CHOLESTEROL 112 mg/dL (<200); HDL CHOLESTEROL < 20 mg/dL (>65)
[2024-07-23 07:18] LABS: HEMATOCRIT. 34.9 % (36.0-48.0); HEMOGLOBIN. 10.8 g/dL (12.0-16.0); MEAN CORPUSCULAR HEMOGLOBIN 22.9 pg (28.0-32.0); MEAN CORPUSCULAR HGB CONC 30.9 g/dL (31.0-37.0); PLATELET 143 x1000/uL (130-400); RED BLOOD CELL COUNT 4.71 mill/uL (4.2-5.4); RED CELL DISTRIBUTION WIDTH 21.5 % (11.6-14.6); WHITE BLOOD COUNT 5.9 x1000/uL (4.5-11.0)
[2024-07-23 07:32] LABS: DIFFERENTIAL COMMENT 1
[2024-07-23 09:00] VITALS: BP 102/70; PULSE 93; RESP 18; TEMP 35.9176
[2024-07-23] MEDS: LEVOTHYROXINE SODIUM 50MCG TABLET PO SCH (09:05)
[2024-07-23] MEDS: PANTOPRAZOLE SODIUM 40 MG/VIAL IV SCH (10:50)
[2024-07-23] MEDS: ASPIRIN 81MG EC TABLET PO SCH (10:50)
[2024-07-23 12:00] VITALS: BP 102/70; PULSE 93; RESP 18; TEMP 36.50292; O2SAT 98
[2024-07-23 15:01] LABS: ALANINE AMINOTRANSFERASE 11 IU/L (10-49); ALBUMIN 3.8 g/dL (3.2-4.8); ASPARTATE AMINOTRANSFERASE 26 IU/L (<34); BILIRUBIN DIRECT 1.5 mg/dL (<=3.0); PROTEIN TOTAL 6.4 g/dL (6.0-8.3)
[2024-07-23 16:00] VITALS: BP 110/66; PULSE 88; RESP 18; TEMP 35.89176; O2SAT 97
[2024-07-23 16:23] LABS: HYPOCHROMASIA 1+; MICROCYTOSIS 2+; PLATELET ESTIMATE NORMAL
[2024-07-23] MEDS: FUROSEMIDE 40MG/4ML VIAL IVP SCH (18:00)
[2024-07-23 20:00] VITALS: BP 102/71; PULSE 98; RESP 18; TEMP 36.50292; O2SAT 97
[2024-07-23] MEDS: CARVEDILOL 3.125 MG TABLET PO SCH (21:00)
[2024-07-23 22:24] LABS: HEPATITIS B SURFACE ANTIGEN NEGATIVE (Negative)
[2024-07-23] MEDS: ATORVASTATIN CALCIUM 40MG TABLET PO SCH (22:42)
[2024-07-23 22:45] LABS: HEPATITIS C AB NON REACTIVE (Neg) (Negative)
[2024-07-24] VITALS: BP 106/74; PULSE 103; RESP 18; TEMP 36.72516; O2SAT 100
[2024-07-24] MEDS: MELATONIN 3MG TABLET PO NR (03:18)
[2024-07-24 04:00] VITALS: BP 110/78; PULSE 102; RESP 18; TEMP 36.33624; O2SAT 100
[2024-07-24 07:47] LABS: CALCIUM 9.1 mg/dL (8.7-10.4); CARBON DIOXIDE 25 mEq/L (21-32); CHLORIDE 105 mEq/L (98-107); POTASSIUM 4.1 mEq/L (3.5-5.1); SODIUM 140 mEq/L (136-145)
[2024-07-24 07:53] LABS: CREATININE 1.4 mg/dL (0.6-1.0); GLUCOSE 94 mg/dL (70-105); UREA NITROGEN BLOOD 35 mg/dL (9-23)
[2024-07-24 08:00] VITALS: BP 110/72; PULSE 96; RESP 18; TEMP 36.50292; O2SAT 98
[2024-07-24 08:06] LABS: HEMATOCRIT. 34.2 % (36.0-48.0); HEMOGLOBIN. 10.6 g/dL (12.0-16.0); MEAN CORPUSCULAR HEMOGLOBIN 23.2 pg (28.0-32.0); MEAN CORPUSCULAR HGB CONC 30.9 g/dL (31.0-37.0); PLATELET 138 x1000/uL (130-400); RED BLOOD CELL COUNT 4.57 mill/uL (4.2-5.4); RED CELL DISTRIBUTION WIDTH 21.8 % (11.6-14.6); WHITE BLOOD COUNT 5.4 x1000/uL (4.5-11.0)
[2024-07-24 08:15] LABS: DIFFERENTIAL COMMENT 1
[2024-07-24 13:44] LABS: TROPONIN I HIGH SENSITIVITY 116 ng/L (3.0-34)
[2024-07-24 14:19] VITALS: BP 160/60; PULSE 93; TEMP 96.6; O2SAT 98
[2024-07-24 22:31] LABS: ANISOCYTOSIS 2+; HYPOCHROMASIA 1+; MICROCYTOSIS 1+; PLATELET ESTIMATE NORMAL
[2024-07-25] MEDS ORDERED: FUROSEMIDE 20MG TABLET PO SCH (09:00)
== END 2024-07-24 15:38 | disposition home or self-care (01) | DRG 280 ==
LOC: ER 10:44 → 5WST 14:20 → EDBEDREQTM 14:21 → EDBEDREQ 14:21 → 8WST 07-23 08:57
PROVIDERS: ADMIT Internal Medicine; ATTEND Internal Medicine
DX: I13.0 Hypertensive heart and chronic kidney disease with heart failure and stage 1 through stage 4 chronic kidney disease, or unspecified chronic kidney disease (principal); I50.23 Acute on chronic systolic (congestive) heart failure; I21.4 Non-ST elevation (NSTEMI) myocardial infarction; N17.9 Acute kidney failure, unspecified; K21.9 Gastro-esophageal reflux disease without esophagitis; D50.9 Iron deficiency anemia, unspecified; E03.9 Hypothyroidism, unspecified; I34.0 Nonrheumatic mitral (valve) insufficiency; I95.2 Hypotension due to drugs; K74.60 Unspecified cirrhosis of liver; N18.9 Chronic kidney disease, unspecified; Z91.199 Patient's noncompliance with other medical treatment and regimen due to unspecified reason
CPT/HCPCS: 36415; 71045; 80048; 80061; 80076; 80305; 81003; 82040; 82728; 83540; 83550; 83735; 83880; 84439; 84443; 84484; 85025; 86705; 87340; 93005; 93306; 99285; J1650; J1940; J2470

== ENCOUNTER 2024-12-09 17:08 | Inpatient (IN) | payer MEDICARE, BC ==
[~2024-12-09] VITALS: Ht 157.5 cm; Wt 56.7 kg
[2024-12-09 21:17] LABS: BASOPHILS % 2.1 % (0.0-2.0); DIFFERENTIAL COMMENT 0; EOSINOPHILS % 7.1 % (0.0-5.0); HEMATOCRIT. 31.7 % (36.0-48.0); HEMOGLOBIN. 9.9 g/dL (12.0-16.0); LYMPHOCYTES % 20.3 % (20.0-50.0); MEAN CORPUSCULAR HEMOGLOBIN 24.8 pg (28.0-32.0); MEAN CORPUSCULAR HGB CONC 31.3 g/dL (31.0-37.0); MEAN CORPUSCULAR VOLUME 79.1 fL (81.0-99.0); MEAN PLATELET VOLUME 9.4 fl (7.4-10.4); MONOCYTES % 7.7 % (2.0-8.0); NEUTROPHILS % 62.8 % (40.0-76.0); PLATELET 208 x1000/uL (130-400); RED BLOOD CELL COUNT 4.01 mill/uL (4.2-5.4); RED CELL DISTRIBUTION WIDTH 19.6 % (11.6-14.6); WHITE BLOOD COUNT 5.9 x1000/uL (4.5-11.0)
[2024-12-09 21:19] LABS: CHLORIDE 107 mEq/L (98-107); POTASSIUM 4.9 mEq/L (3.5-5.1); SODIUM 140 mEq/L (136-145)
[2024-12-09 21:20] LABS: CARBON DIOXIDE 22 mEq/L (21-32)
[2024-12-09 21:21] LABS: CALCIUM 9.2 mg/dL (8.7-10.4)
[2024-12-09 21:25] LABS: CREATININE 1.7 mg/dL (0.6-1.0); GLUCOSE 113 mg/dL (70-105)
[2024-12-09 21:26] LABS: UREA NITROGEN BLOOD 31 mg/dL (9-23)
[2024-12-09 21:27] LABS: ALANINE AMINOTRANSFERASE 18 IU/L (10-49); ALBUMIN 4.4 g/dL (3.2-4.8); ASPARTATE AMINOTRANSFERASE 30 IU/L (<34); BILIRUBIN DIRECT 0.6 mg/dL (<=3.0)
[2024-12-09 21:28] LABS: BILIRUBIN TOTAL 1.5 mg/dL (0.1-1.0)
[2024-12-09 21:51] LABS: CLARITY URINE CLEAR (CLEAR); COLOR URINE DARK YELLOW (YELLOW); GLUCOSE URINE NEGATIVE (NEGATIVE); KETONES URINE TRACE (NEGATIVE); LEUKOCYTE ESTERASE URINE 1+ (NEGATIVE); NITRITE URINE NEGATIVE (NEGATIVE); OCCULT BLOOD URINE NEGATIVE (NEGATIVE); PH URINE 5.5 (4.5-8.0); PROTEIN URINE 1+ (NEGATIVE); SPECIFIC GRAVITY URINE 1.022 (1.005-1.030)
[2024-12-09 22:02] LABS: BACTERIA URINE NONE SEEN; RBC URINE NONE SEEN /hpf (0-2); SQUAMOUS EPITHELIAL CELL URINE FEW /lpf (RARE/1+)
[2024-12-09 22:32] LABS: TROPONIN I HIGH SENSITIVITY 94 ng/L (3.0-34)
[2024-12-09] MEDS: MORPHINE SULFATE 4 MG/ML INJ (FOR IV/IM USE) IV STA (22:55)
[2024-12-09] MEDS: SODIUM CHLORIDE 0.9% 1,000 ML IV ONE (22:55)
[2024-12-09] MEDS: ONDANSETRON HCL 4MG/2ML INJ IV STA (22:55)
[2024-12-10] MEDS ORDERED: CEFTRIAXONE 1GM/50ML 50 ML IV SCH (00:15)
[2024-12-10] MEDS ORDERED: ASPIRIN 325MG EC TABLET PO ONE (00:15)
[2024-12-10] MEDS ORDERED: CLONIDINE 0.1MG TABLET PO PRN (00:30)
[2024-12-10] MEDS ORDERED: HYDROCODONE/ACETAMINOPHEN 5/325MG TABLET PO PRN (00:30)
[2024-12-10] MEDS ORDERED: ENOXAPARIN 40MG/0.4ML SYR SUBCUT SCH (00:30)
[2024-12-10] MEDS: ONDANSETRON HCL 4MG/2ML INJ IV ONE (01:52)
[2024-12-10] MEDS: CEFTRIAXONE 1GM/50ML 50 ML IV SCH (01:52)
[2024-12-10] MEDS: ASPIRIN 325MG EC TABLET PO SCH (01:55)
[2024-12-10 05:00] VITALS: BP 137/63; PULSE 110; RESP 20; TEMP 36.9
[2024-12-10] MEDS: ONDANSETRON HCL 4MG/2ML INJ IV PRN (05:49)
[2024-12-10] MEDS: MORPHINE SULFATE 2 MG/ML INJ (NOT FOR IM USE) IV PRN (05:50)
[2024-12-10 08:00] VITALS: BP 107/73; PULSE 98; RESP 18; TEMP 36.4; O2SAT 98
[2024-12-10] MEDS: ENOXAPARIN 30MG/0.3ML SYR SUBCUT SCH (09:42)
[2024-12-10] MEDS: PANTOPRAZOLE SODIUM 40 MG/VIAL IV SCH (09:44)
[2024-12-10] MEDS ORDERED: SACUBITRIL/VALSARTAN 24MG/26MG TABLET PO SCH (11:15)
[2024-12-10 12:00] VITALS: BP 105/70; PULSE 85; RESP 18; TEMP 36.4; O2SAT 100
[2024-12-10] MEDS: SUCRALFATE 1G TABLET PO SCH (12:10)
[2024-12-10] MEDS ORDERED: SODIUM CHLORIDE 0.9% 1,000 ML IV SCH (12:15)
[2024-12-10] MEDS: LEVOTHYROXINE SODIUM 50MCG TABLET PO SCH (12:30)
[2024-12-10] MEDS ORDERED: FUROSEMIDE 20MG TABLET PO SCH (12:30)
[2024-12-10] MEDS: LORATADINE 10MG TABLET PO SCH (12:31)
[2024-12-10] MEDS: CARVEDILOL 3.125 MG TABLET PO SCH (12:33)
[2024-12-10 16:00] VITALS: BP 98/70; PULSE 94; RESP 20; TEMP 36.5; O2SAT 100
[2024-12-10] MEDS ORDERED: ATORVASTATIN CALCIUM 40MG TABLET PO SCH (17:00)
[2024-12-10] MEDS: ACETAMINOPHEN 325MG TABLET PO PRN (17:47)
[2024-12-10 19:56] LABS: CREATINE KINASE MB FRACTION 2.2 ng/mL (0.5-3.6)
[2024-12-10 20:00] VITALS: BP 99/71; PULSE 92; RESP 20; TEMP 35.7; O2SAT 93
[2024-12-10] MEDS: ATORVASTATIN CALCIUM 40MG TABLET PO SCH (20:27)
[2024-12-10] MEDS ORDERED: ZOLPIDEM TARTRATE 5MG TABLET PO PRN (21:00)
[2024-12-10 22:46] LABS: CREATINE KINASE MB FRACTION 2.1 ng/mL (0.5-3.6)
[2024-12-11] VITALS (16 sets, daily range): BP systolic 87–105; BP diastolic 55–86; PULSE 89–108; RESP 12–20; TEMP 36–36.5; O2SAT 98–100
[2024-12-11] MEDS ORDERED: CEFTRIAXONE 1GM/50ML 50 ML IV SCH (03:00)
[2024-12-11 07:12] LABS: BASOPHILS % 1.3 % (0.0-2.0); DIFFERENTIAL COMMENT 0; EOSINOPHILS % 6.7 % (0.0-5.0); HEMOGLOBIN. 8.8 g/dL (12.0-16.0); LYMPHOCYTES % 24.3 % (20.0-50.0); MEAN CORPUSCULAR HEMOGLOBIN 24.5 pg (28.0-32.0); MEAN CORPUSCULAR HGB CONC 31.5 g/dL (31.0-37.0); MEAN PLATELET VOLUME 9.8 fl (7.4-10.4); NEUTROPHILS % 58.7 % (40.0-76.0); PLATELET 177 x1000/uL (130-400); RED BLOOD CELL COUNT 3.58 mill/uL (4.2-5.4); RED CELL DISTRIBUTION WIDTH 19.8 % (11.6-14.6); WHITE BLOOD COUNT 4.8 x1000/uL (4.5-11.0)
[2024-12-11 07:39] LABS: POTASSIUM 4.9 mEq/L (3.5-5.1)
[2024-12-11 07:40] LABS: CALCIUM 8.4 mg/dL (8.7-10.4)
[2024-12-11 07:45] LABS: CREATININE 1.7 mg/dL (0.6-1.0)
[2024-12-11] MEDS ORDERED: METFORMIN HCL 500MG TABLET PO SCH (09:00)
[2024-12-11] MEDS ORDERED: LOSARTAN 25 MG TABLET PO SCH (09:00)
[2024-12-11] MEDS: ASPIRIN 81MG EC TABLET PO SCH (09:40)
[2024-12-11] MEDS: CEFTRIAXONE 1GM/50ML 50 ML IV SCH (09:40)
[2024-12-11] MEDS ORDERED: AZITHROMYCIN 500MG/250ML 250 ML IV SCH (15:15)
[2024-12-11 18:03] LABS: PHOSPHORUS 4.1 mg/dL (2.5-4.9)
[2024-12-11] MEDS: AZITHROMYCIN 500MG/250ML 250 ML IV SCH (18:05)
[2024-12-11 19:21] LABS: *AMPHETAMINES SCREEN URINE NEGATIVE (NEGATIVE); *BARBITURATES SCREEN URINE NEGATIVE (NEGATIVE); *BENZODIAZEPINES SCREEN URINE NEGATIVE (NEGATIVE); *COCAINE SCREEN URINE NEGATIVE (NEGATIVE); METHADONE URINE SCREEN NEGATIVE (NEGATIVE)
[2024-12-11 19:22] LABS: CANNABINOID URINE SCREEN NEGATIVE (NEGATIVE); ECSTASY MDMA SCREEN URINE NEGATIVE (NEGATIVE); OPIATES URINE SCREEN PRESUMPTIVE POSITIVE (NEGATIVE); PHENCYCLIDINE URINE SCREEN NEGATIVE (NEGATIVE)
[2024-12-11] MEDS ORDERED: SODIUM CHLORIDE 0.9% (SEPSIS BOLUS) IV ONE (20:30)
[2024-12-11] MEDS ORDERED: SODIUM CHLORIDE 0.9% 1,000 ML IV SCH (20:45)
[2024-12-11] MEDS ORDERED: NALOXONE HCL 0.4MG/ML VIAL IV PRN (20:45)
[2024-12-11] MEDS ORDERED: ACETAMINOPHEN 650MG/20.3ML UDC NG PRN (21:30)
[2024-12-11] MEDS ORDERED: ACETAMINOPHEN 650MG SUPP PR PRN (21:30)
[2024-12-11] MEDS ORDERED: FENTANYL CITRATE/PF 1,000 MCG in SODIUM CHLORIDE 0.9% 80 ML IV PRN (21:30)
[2024-12-11] MEDS ORDERED: DEXTROSE 50% WATER 50ML SYRINGE IV PRN (22:30)
[2024-12-11] MEDS: BLOOD SUGAR DIAGNOSTIC STRIP TEST SCH (22:30)
[2024-12-11] MEDS: INSULIN LISPRO 100 UNITS/ML SUBCUT SCH (22:30)
[2024-12-11] MEDS ORDERED: SODIUM CHLORIDE 10% FOR INH 15ML NEB INH SCH (23:30)
[2024-12-11 23:47] LABS: CHLORIDE 106 mEq/L (98-107); POTASSIUM 5.7 mEq/L (3.5-5.1); SODIUM 136 mEq/L (136-145)
[2024-12-11] MEDS: NOREPINEPHRINE 8MG/250ML PMX 250 ML IV PRN (23:47)
[2024-12-11 23:48] LABS: CALCIUM 7.9 mg/dL (8.7-10.4); CARBON DIOXIDE 15 mEq/L (21-32)
[2024-12-11] MEDS: SODIUM CHLORIDE 0.9% 1,000 ML IV ONE (23:48)
[2024-12-11 23:53] LABS: GLUCOSE 143 mg/dL (70-105); UREA NITROGEN BLOOD 38 mg/dL (9-23); WHITE BLOOD COUNT 7.5 x1000/uL (4.5-11.0)
[2024-12-11 23:55] LABS: AMMONIA 40 uMol/L (<32); PHOSPHORUS 5.5 mg/dL (2.5-4.9)
[2024-12-12] VITALS (121 sets, daily range): BP systolic 57–144; BP diastolic 35–106; PULSE 80–161; RESP 12–29; TEMP 95.8–99.9; O2SAT 84–100
[2024-12-12 00:36] LABS: CREATININE 2.4 mg/dL (0.6-1.0)
[2024-12-12 01:01] LABS: TROPONIN I HIGH SENSITIVITY 88 ng/L (3.0-34)
[2024-12-12 01:02] LABS: BASOPHILS % 1.1 % (0.0-2.0); EOSINOPHILS % 2.8 % (0.0-5.0); HEMATOCRIT. 36.3 % (36.0-48.0); HEMOGLOBIN. 10.9 g/dL (12.0-16.0); LYMPHOCYTES % 16.6 % (20.0-50.0); MEAN CORPUSCULAR HGB CONC 30.1 g/dL (31.0-37.0); MEAN CORPUSCULAR VOLUME 83.2 fL (81.0-99.0); MEAN PLATELET VOLUME 9.3 fl (7.4-10.4); MONOCYTES % 5.2 % (2.0-8.0); NEUTROPHILS % 74.3 % (40.0-76.0); PLATELET 188 x1000/uL (130-400); RED BLOOD CELL COUNT 4.36 mill/uL (4.2-5.4); RED CELL DISTRIBUTION WIDTH 20.6 % (11.6-14.6)
[2024-12-12] MEDS ORDERED: IOHEXOL-350 100 ML BOTTLE ONE (01:25)
[2024-12-12 01:31] LABS: DIFFERENTIAL COMMENT 1
[2024-12-12 01:50] LABS: CLARITY URINE CLOUDY (CLEAR); COLOR URINE DARK YELLOW (YELLOW); GLUCOSE URINE TRACE (NEGATIVE); KETONES URINE TRACE (NEGATIVE); LEUKOCYTE ESTERASE URINE NEGATIVE (NEGATIVE); NITRITE URINE NEGATIVE (NEGATIVE); OCCULT BLOOD URINE 1+ (NEGATIVE); PROTEIN URINE 4+ (NEGATIVE); SPECIFIC GRAVITY URINE 1.042 (1.005-1.030); UROBILINOGEN URINE 0.2 E.U./dL (0.2-1.0)
[2024-12-12 02:38] LABS: SQUAMOUS EPITHELIAL CELL URINE 1+ /lpf (RARE/1+)
[2024-12-12 02:43] LABS: BACTERIA URINE 1+
[2024-12-12 02:51] LABS: BG BASE EXCESS -11.9 mmol/L (-2.0-3.0); BG CARBOXYHEMOGLOBIN 0.6 % (0.5-1.5); BG DEOXYHEMOGLOBIN 0.2 % (0.0-5.0); BG FRACTION INSPIRED OXYGEN 100; BG HCO3 ACT 15.4 mmol/L (21.0-28.0); BG OXYGEN SATURATION 99.8 % (94.0-98.0); BG OXYHEMOGLOBIN 99.2 % (94.0-98.0); BG PCO2 40.4 mmHg (32.0-45.0); BG PH 7.199 (7.350-7.450); BG PO2 263.4 mmHg (83.0-108.0); BG SAMPLE SITE RIGHT BRACHIAL; BG VENT MODE VENT - AC
[2024-12-12] MEDS: PROPOFOL 10MG/ML 100ML 100 ML IV PRN (03:07)
[2024-12-12] MEDS: DEXTROSE 50% WATER 50ML SYRINGE IV NR (03:42)
[2024-12-12] MEDS: INSULIN REGULAR (HUMULIN R) 1000UNITS/10ML VIAL IV NR (03:42)
[2024-12-12] MEDS: SODIUM CHLORIDE 0.9% 1,000 ML IV NR (03:46)
[2024-12-12] MEDS: LEVETIRACETAM 1000MG PREMIX 100 ML IV NR (03:49)
[2024-12-12] MEDS: DEXT 5%/0.9% NACL 1,000 ML IV SCH (04:27)
[2024-12-12 06:37] LABS: BASOPHILS % 0.3 % (0.0-2.0); DIFFERENTIAL COMMENT 0; EOSINOPHILS % 0.2 % (0.0-5.0); HEMATOCRIT. 31.6 % (36.0-48.0); HEMOGLOBIN. 9.5 g/dL (12.0-16.0); LYMPHOCYTES % 8.6 % (20.0-50.0); MEAN CORPUSCULAR HEMOGLOBIN 24.5 pg (28.0-32.0); MEAN CORPUSCULAR HGB CONC 30.2 g/dL (31.0-37.0); MEAN CORPUSCULAR VOLUME 81.2 fL (81.0-99.0); MEAN PLATELET VOLUME 9.4 fl (7.4-10.4); MONOCYTES % 5.5 % (2.0-8.0); NEUTROPHILS % 85.4 % (40.0-76.0); PLATELET 117 x1000/uL (130-400); RED BLOOD CELL COUNT 3.89 mill/uL (4.2-5.4); RED CELL DISTRIBUTION WIDTH 20.3 % (11.6-14.6); WHITE BLOOD COUNT 13.3 x1000/uL (4.5-11.0)
[2024-12-12 06:59] LABS: CREATINE KINASE MB FRACTION 1.5 ng/mL (0.5-3.6); CREATININE 1.1 mg/dL (0.6-1.0)
[2024-12-12] MEDS ORDERED: SODIUM POLYSTYRENE SULFONATE 15 G/60 ML BOT PO NR (07:00)
[2024-12-12] MEDS ORDERED: DEXT 10% WATER 1,000 ML IV SCH (07:30)
[2024-12-12 08:12] LABS: POTASSIUM 2.6 mEq/L (3.5-5.1)
[2024-12-12] MEDS: IPRATROPIUM/ALBUTEROL 0.5-3(2.5)MG/3ML NEB NEB PRN (08:37)
[2024-12-12] MEDS: SODIUM BICARBONATE 100 MEQ in DEXTROSE 5% WATER 900 ML IV SCH (09:44)
[2024-12-12 09:52] LABS: BG BASE EXCESS -8.7 mmol/L (-2.0-3.0); BG CARBOXYHEMOGLOBIN 0.3 % (0.5-1.5); BG DEOXYHEMOGLOBIN 0.5 % (0.0-5.0); BG FRACTION INSPIRED OXYGEN 70; BG HCO3 ACT 17.1 mmol/L (21.0-28.0); BG METHEMOGLOBIN 0.3 % (0.5-1.5); BG OXYGEN SATURATION 99.5 % (94.0-98.0); BG OXYHEMOGLOBIN 98.9 % (94.0-98.0); BG PCO2 36.2 mmHg (32.0-45.0); BG PH 7.291 (7.350-7.450); BG PO2 204.3 mmHg (83.0-108.0); BG SAMPLE SITE RIGHT BRACHIAL; BG TOTAL HEMOGLOBIN 10.1 g/dL (12.0-16.0); BG VENT MODE VENT - P/C
[2024-12-12 10:21] LABS: POTASSIUM 3.3 mEq/L (3.5-5.1)
[2024-12-12 10:22] LABS: CALCIUM 6.1 mg/dL (8.7-10.4)
[2024-12-12 10:45] LABS: CREATININE 2.3 mg/dL (0.6-1.0)
[2024-12-12] MEDS ORDERED: NOREPINEPHRINE 32 MG in DEXT 5% WATER 218 ML IV PRN (11:30)
[2024-12-12 12:24] LABS: CHLORIDE 107 mEq/L (98-107); SODIUM 139 mEq/L (136-145)
[2024-12-12 12:25] LABS: CALCIUM 7.8 mg/dL (8.7-10.4); CARBON DIOXIDE 18 mEq/L (21-32)
[2024-12-12 12:30] LABS: CREATININE 2.6 mg/dL (0.6-1.0); GLUCOSE 129 mg/dL (70-105); UREA NITROGEN BLOOD 41 mg/dL (9-23)
[2024-12-12 12:53] LABS: POTASSIUM 5.4 mEq/L (3.5-5.1)
[2024-12-12] MEDS ORDERED: MAGNESIUM 4 G PREMIX 100 ML IV SCH (14:00)
[2024-12-12] MEDS: FUROSEMIDE 40MG/4ML VIAL IVP SCH (14:30)
[2024-12-12] MEDS: AZITHROMYCIN 500MG/250ML 250 ML IV SCH (14:35)
[2024-12-12] MEDS ORDERED: DOPAMINE 400MG/250ML PREMIX 250 ML IV PRN (16:00)
[2024-12-12] MEDS ORDERED: PHENYLEPHRINE 100 MG in SODIUM CHLORIDE 0.9% 240 ML IV PRN (17:00)
[2024-12-12 18:14] LABS: BASOPHILS % 0.4 % (0.0-2.0); CHLORIDE 105 mEq/L (98-107); EOSINOPHILS % 1.7 % (0.0-5.0); HEMATOCRIT. 40.3 % (36.0-48.0); HEMOGLOBIN. 11.8 g/dL (12.0-16.0); LYMPHOCYTES % 13.4 % (20.0-50.0); MEAN CORPUSCULAR HGB CONC 29.4 g/dL (31.0-37.0); MEAN CORPUSCULAR VOLUME 81.8 fL (81.0-99.0); MEAN PLATELET VOLUME 9.6 fl (7.4-10.4); MONOCYTES % 4.9 % (2.0-8.0); NEUTROPHILS % 79.6 % (40.0-76.0); PLATELET 207 x1000/uL (130-400); POTASSIUM 4.6 mEq/L (3.5-5.1); RED BLOOD CELL COUNT 4.93 mill/uL (4.2-5.4); RED CELL DISTRIBUTION WIDTH 20.6 % (11.6-14.6); SODIUM 139 mEq/L (136-145); WHITE BLOOD COUNT 16.9 x1000/uL (4.5-11.0)
[2024-12-12 18:15] LABS: CALCIUM 9.3 mg/dL (8.7-10.4); CARBON DIOXIDE 15 mEq/L (21-32)
[2024-12-12 18:20] LABS: CREATININE 2.7 mg/dL (0.6-1.0); GLUCOSE 167 mg/dL (70-105); UREA NITROGEN BLOOD 43 mg/dL (9-23)
[2024-12-12 18:21] LABS: CREATINE KINASE MB FRACTION 3.3 ng/mL (0.5-3.6)
[2024-12-12 18:22] LABS: CREATINE KINASE 121 IU/L (34-145)
[2024-12-12] MEDS ORDERED: NOREPINEPHRINE 32 MG in SODIUM CHLORIDE 0.9% 218 ML IV PRN (18:30)
[2024-12-12 18:35] LABS: DIFFERENTIAL COMMENT 1
[2024-12-12 18:41] LABS: TROPONIN I HIGH SENSITIVITY 157 ng/L (3.0-34)
[2024-12-12] MEDS: LEVETIRACETAM 1000MG PREMIX 100 ML IV SCH (20:27)
[2024-12-12] MEDS ORDERED: AZITHROMYCIN 500MG/250ML 250 ML IV SCH (20:45)
[2024-12-12] MEDS ORDERED: LEVETIRACETAM 1,000MG in NACL 100ML PREMIX IV SCH (21:00)
[2024-12-13] VITALS (33 sets, daily range): BP systolic 50–120; BP diastolic 36–66; PULSE 91–111; RESP 11–28; TEMP 99.7–100.3; O2SAT 65–69
[2024-12-13] MEDS: MORPHINE SULFATE 4 MG/ML INJ (FOR IV/IM USE) IV NR (01:58)
[2024-12-13] MEDS: LORAZEPAM 2MG/ML INJ IV NR (01:58)
[2024-12-13] MEDS: MORPHINE SULFATE 100 MG in SODIUM CHLORIDE 0.9% 90 ML IV SCH (02:00)
[2024-12-13] MEDS ORDERED: LORAZEPAM 2MG/ML INJ IV PRN (02:00)
[2024-12-13] MEDS ORDERED: MORPHINE SULFATE 2 MG/ML INJ (NOT FOR IM USE) IV PRN (02:00)
[2024-12-13] MEDS ORDERED: AZITHROMYCIN 500MG/250ML 250 ML IV SCH (14:00)
== END 2024-12-13 12:41 | DRG 682 ==
LOC: ER 17:08 → 8WST 12-10 00:17 → EDBEDREQDT 12-10 00:24 → EDBEDREQ 12-10 00:24 → EDBEDREQTM 12-10 00:24 → MICUSO 12-11 20:58
PROVIDERS: ADMIT Internal Medicine; ATTEND Internal Medicine
PROC: 5A12012 Performance of Cardiac Output, Single, Manual (ICD-10-PCS; principal; 2024-12-11)
PROC: 0BH17EZ Insertion of Endotracheal Airway into Trachea, Via Natural or Artificial Opening (ICD-10-PCS; 2024-12-11)
PROC: 5A1945Z Respiratory Ventilation, 24-96 Consecutive Hours (ICD-10-PCS; 2024-12-11)
PROC: 5A12012 Performance of Cardiac Output, Single, Manual (ICD-10-PCS; 2024-12-12)
DX: N17.9 Acute kidney failure, unspecified (principal); J96.01 Acute respiratory failure with hypoxia; I13.0 Hypertensive heart and chronic kidney disease with heart failure and stage 1 through stage 4 chronic kidney disease, or unspecified chronic kidney disease; I50.22 Chronic systolic (congestive) heart failure; R57.9 Shock, unspecified; R18.8 Other ascites; I42.9 Cardiomyopathy, unspecified; G93.40 Encephalopathy, unspecified; K74.60 Unspecified cirrhosis of liver; I46.9 Cardiac arrest, cause unspecified; Z51.5 Encounter for palliative care; Z66 Do not resuscitate; N18.9 Chronic kidney disease, unspecified; E11.22 Type 2 diabetes mellitus with diabetic chronic kidney disease; E87.5 Hyperkalemia; I08.1 Rheumatic disorders of both mitral and tricuspid valves; I27.20 Pulmonary hypertension, unspecified; D64.9 Anemia, unspecified; Z95.810 Presence of automatic (implantable) cardiac defibrillator; Z90.49 Acquired absence of other specified parts of digestive tract; R56.9 Unspecified convulsions
CPT/HCPCS: 31500; 36415; 36600; 71045; 71275; 74176; 76770; 80048; 80076; 80305; 81003; 82140; 82375; 82550; 82553; 82805; 82962; 83735; 84100; 84478; 84484; 85025; 85379; 87070; 92950; 93005; 93306; 93970; 94002; 94003; 94070; 94640; 94664; 98960; 99285; A4606; A4663; J0456; J0696; J1265; J1650; J1940; J1953; J2060; J2270; J2405; J2470; J2704; J3475; J3490; J7030; J7050; J7060; J7070; J7131; Q9967